=== PATIENT | male | born 1945 | race Caucasian/White ===

== ENCOUNTER 2024-03-08 11:55 | Inpatient (IN) ==
[2024-03-08 12:16] LABS: Basophils # (auto) 0.07 K/uL (0.00-0.20); Basophils % (auto) 0.8 %; Eosinophils # (auto) 0.38 K/uL (0.00-0.50); Eosinophils % (auto) 4.6 %; Hematocrit (blood only) 33.6 % (42.0-52.0); Immature Granulocytes # (auto) 0.07 K/uL (0.01-0.20); Immature Granulocytes % (auto) 0.8 %; Lymphocytes # (auto) 0.97 K/uL (1.20-3.40); Lymphocytes % (auto) 11.7 %; Mean Corpuscular Hemoglobin 27.5 pg (25.0-34.0); Mean Corpuscular Hgb Conc 32.7 g/dL (32.0-36.0); Mean Platelet Volume 11.4 fL (9.4-12.4); Monocytes # (auto) 1.05 K/uL (0.11-0.59); Monocytes % (auto) 12.6 %; Neutrophils # (auto) 5.77 K/uL (1.40-6.50); Neutrophils % (auto) 69.5 %; Platelet Count 233 K/uL (130-400); RDW Standard Deviation 49.1 fL (36.4-46.3); White Blood Count 8.31 K/ul (4.8-10.8)
--- NOTE | 2024-03-08 12:31 | Emergency Department Note ---
Impression & Plan Near syncope, Elevated lactic acid level, Elevated serum creatinine ED Provider Note HISTORY OF PRESENT ILLNESS: Patient is a 79-year-old male presenting after an episode of near syncope. Patient reportedly was eating [place] breakfast with his family when he suddenly felt very lightheaded and very weak like he was going to pass out. Family reports he seemed to start slumping over towards his table and the family said his eyes seemed to roll back into his head. They report that they do not know if he fully passed out but he did seem near unresponsive for about a few seconds. They gave him a drink of orange juice because they thought his blood sugar was low. They state that he came to before the ambulance got there. Patient denies any chest pain or shortness of breath before the episode. He states that he felt very lightheaded and became diaphoretic with the weakness. Patient does report that he has not had a bowel movement in over a week. He states that he is still passing gas but has not had a bowel movement. States that he has been taking MiraLAX with no output from his rectum. Denies any significant abdominal pain. ROS: as above PHYSICAL EXAM: Constitutional: Patient appears in no acute distress. HENT: Head: Normocephalic and atraumatic. Eyes: EOMI, PERRL Mouth/Throat: Mucous membranes moist. Neck: Trachea midline. Neck supple. Cardiovascular: Irregular rhythm. No murmurs, rubs or gallops. Intact distal pulses. Pulmonary/Chest: No respiratory distress. Breath sounds clear and equal bilaterally. No wheezes or rales. Abdominal: Abdomen soft, no tenderness, rebound or guarding. Musculoskeletal: No edema, tenderness or deformity noted. Skin: Warm and dry. No rash, erythema, pallor or cyanosis Psychiatric: Appropriate mood and affect for situation. Neurological: Alert and keenly responsive. CN II-XII grossly intact, moving all extremities equally and fully. MDM: - Vitals signs showed stable. - History obtained via patient. History as above. - Chronic conditions affecting care: HTN; HLD; DM-2 - Differential diagnoses include, but are not limited to: UTI; ACS; electrolyte abnormality; pneumonia; viral syndrome; CVA; intracranial hemorrhage - Order placed for continuous cardiac monitoring. At this time, monitor showed rate of 75 bpm with irregular rhythm, per my interpretation. - External medical records reviewed. - EKG interpreted by myself showed atrial fibrillation. Rate 59 bpm. QT 416. No acute ischemic changes. - Laboratory workup interpreted by myself showed normal WBC; elevated INR (2.6); normal electrolytes; elevated creatinine (Cr 1.72 - unknown baseline); hyperglycemia (glucose 275); elevated lactic acid (2.9); normal procalcitonin; normal troponin; elevated TSH but with normal T4 - CXR negative for pneumonia, per my interpretation - CT head wo contrast negative for acute intracranial pathology - Patient given 1 L normal saline in the ER. Repeat lactic acid was noted to be 5.7. However, this does not fit with the patient's clinical picture and I have requested that lab repeat lactic acid which was 3.1. Patient has no reproducible abdominal pain and no complaints on examination. - Given a second 1L NS. - Empirically ordered IV rocephin given elevated lactate. However, patient has had no infectious symptoms such as fever, nausea or vomiting. - Patient has no reproducible abdominal pain on examination and no complaints of abdominal pain. However, he has not had a bowel movement in over a week, so CT imaging was obtained. - CT abdomen/pelvis wo contrast noting bilateral perinephric stranding which could potentially be chronic pyelonephritis. Noted to have mild dilatation of the bilateral extrarenal pelvises and proximal ureters but without stones noted. - Unclear etiology for patient's elevated lactic acid in the emergency department. Will admit for further evaluation. - Discussion was had with case checker about patient's case and need for admission - Hospitalist consulted for admission - [facility] ASSESSMENT AND PLAN: Diagnosis: near syncope; elevated lactic acid; elevated creatinine Plan: admit Past Med/Surg History Problem List (Updated 03/08/24 @ 15:46 by Sima Kenny MD) Elevated serum creatinine (Acute) Elevated lactic acid level (Acute) Near syncope (Acute) Social History Smoking Status: Never smoker Feels Safe at Home: Yes Allergies Allergies Allergy/AdvReac Type Severity Reaction Status Date / Time No Known Allergies Allergy Unverified 03/08/24 16:00 Home Meds Home Medications Medication Instructions Recorded Confirmed carbidopa 25 mg-levodopa 100 mg 2 tab PO TID 03/08/24 03/08/24 tablet carvedilol 25 mg tablet 25 mg PO BID 03/08/24 03/08/24 gabapentin 300 mg capsule 300 mg PO HS 03/08/24 03/08/24 insulin glargine U-300 conc 300 50 unit subcut DAILY 03/08/24 03/08/24 unit/mL (1.5 mL) subcutaneous pen ([employer] SoloStar U-300 Insulin) megestrol 20 mg tablet 20 mg PO BID 03/08/24 03/08/24 pantoprazole 40 mg tablet,delayed 40 mg PO DAILYBB 03/08/24 03/08/24 release rosuvastatin 20 mg tablet 20 mg PO DAILY 03/08/24 03/08/24 warfarin 5 mg tablet 5 mg PO DIRECTED 03/08/24 03/08/24 Results & Data (ED) Vital Signs Vital Signs - 24 hr 03/08/24 11:59 03/08/24 11:59 03/08/24 12:06 Temperature 36.7 C Temperature Source Oral Pulse Rate 58 L Pulse Rate [Right Brachial] 58 L Pulse Rhythm Regular Pulse Rhythm [Right Brachial] Regular Pulse Strength Normal Pulse Strength [Right Brachial] Normal Respiratory Rate 18 18 Respiratory Effort / Characteristics Non-Labored Non-Labored Respiratory Depth Normal Normal Respiratory Pattern Regular Regular Blood Pressure 135/81 Blood Pressure [Right Arm] 135/81 Blood Pressure Mean 99 Blood Pressure Mean [Right Arm] 99 Blood Pressure Position Lying Blood Pressure Position [Right Arm] Lying Pulse Oximetry 98 98 98 Oxygen Delivery Method Room Air Room Air Room Air Sepsis Recent Fever Within 48 Hours No Sepsis New/Unexplained Change in Mental Status N/A Sepsis Action Taken by Nursing No Action Required 03/08/24 12:30 03/08/24 14:00 Temperature Temperature Source Pulse Rate 75 Pulse Rate [Right Brachial] 72 Pulse Rhythm Pulse Rhythm [Right Brachial] Regular Pulse Strength Pulse Strength [Right Brachial] Normal Respiratory Rate 20 Respiratory Effort / Characteristics Non-Labored Respiratory Depth Normal Respiratory Pattern Regular Blood Pressure Blood Pressure [Right Arm] 135/79 Blood Pressure Mean Blood Pressure Mean [Right Arm] 97 Blood Pressure Position Blood Pressure Position [Right Arm] Lying Pulse Oximetry 98 Oxygen Delivery Method Room Air Sepsis Recent Fever Within 48 Hours Sepsis New/Unexplained Change in Mental Status Sepsis Action Taken by Nursing Laboratory Data 03/08/24 12:04 03/08/24 12:04 Lab Results 03/08/24 03/08/24 03/08/24 Range/Units 12:02 12:04 14:05 WBC 8.31 (4.8-10.8) K/ul RBC 4.00 L (4.70-6.10) M/uL Hgb 11.0 L (14.0-18.0) g/dl Hct 33.6 L (42.0-52.0) % MCV 84.0 (80.0-100.0) fL MCH 27.5 (25.0-34.0) pg MCHC 32.7 (32.0-36.0) g/dL RDW Std Deviation 49.1 H (36.4-46.3) fL RDW Coeff of Abdi 16.0 H (11.5-14.5) % Plt Count 233 (130-400) K/uL MPV 11.4 (9.4-12.4) fL Immature Gran % (Auto) 0.8 % Neut % (Auto) 69.5 % Lymph % (Auto) 11.7 % [place] % (Auto) 12.6 % Eos % (Auto) 4.6 % Baso % (Auto) 0.8 % Neut # (Auto) 5.77 (1.40-6.50) K/uL Lymph # (Auto) 0.97 L (1.20-3.40) K/uL [place] # (Auto) 1.05 H (0.11-0.59) K/uL Eos # (Auto) 0.38 (0.00-0.50) K/uL Baso # (Auto) 0.07 (0.00-0.20) K/uL Immature Gran # (Auto) 0.07 (0.01-0.20) K/uL PT 25.5 H (9.0-12.0) Seconds INR 2.6 H (0.9-1.1) Sodium 137 (136-145) mmol/L Potassium 4.5 (3.5-5.1) mmol/L Chloride 104 (98-107) mmol/L Carbon Dioxide 24 (21-32) mmol/L Anion Gap 9 (3-11) BUN 43 H (6-23) mg/dl Creatinine 1.72 H (0.6-1.4) mg/dl Est Cr Clr Drug Dosing 43.2 ml/min eGFR 39.94 BUN/Creatinine Ratio 25.0 H (10-20) Glucose 275 H (70-99(Fasting)) mg/dl POC Glucose 269 H (70-99) mg/dl Lactate 2.9 H* (0.4-2.0) mmol/L Calcium 9.0 (8.6-10.3) mg/dl Magnesium 2.4 (1.7-2.4) mg/dl Total Bilirubin 0.6 (0.2-1.0) mg/dl AST 13 (13-39) U/L ALT < 3 L (7-52) U/L Alkaline Phosphatase 70 (34-104) U/L Lactate Dehydrogenase (86-244) U/L Troponin I High Sens 12.9 (0-20) pg/ml Total Protein 6.8 (6.0-8.3) gm/dl Albumin 3.9 (3.4-5.0) gm/dl Globulin 2.9 (2.5-4.0) gm/dl Albumin/Globulin Ratio 1.3 (0.9-2) Procalcitonin 0.02 (0-0.5) ng/ml TSH 6.100 H (0.300-4.500) uIu/ml Free T4 1.07 (0.61-1.60) ng/dl Urine Color Yellow Urine Appearance Clear (Clear) Urine pH 5.5 (4.5-7.5) Ur Specific [place] 1.010 (1.000-1.030) Urine Protein Negative (Negative) Urine Glucose (UA) 2+ H (Negative) Urine Ketones Negative (Negative) Urine Blood Negative (Negative) Urine Nitrite Negative (Negative) Urine Bilirubin Negative (Negative) Urine Urobilinogen Negative (Negative) Ur Leukocyte Esterase Negative (Negative) Adenovirus (PCR) Not Detected (NotDetected) B. pertussis DNA (PCR) Not Detected (NotDetected) B.parapertussis DNA PCR Not Detected (NotDetected) C. pneumoniae DNA (PCR) Not Detected (NotDetected) Coronavirus OC43 (PCR) Not Detected (NotDetected) Coronavirus HKU1 (PCR) Not Detected (NotDetected) Coronavirus 229E (PCR) Not Detected (NotDetected) SARS-CoV-2 (PCR) Not Detected (NotDetected) Coronavirus NL63 (PCR) Not Detected (NotDetected) Human Metapneumovir PCR Not Detected (NotDetected) Influenza Type A (PCR) Not Detected (NotDetected) Influenza Type B (PCR) Not Detected (NotDetected) M. pneumoniae (PCR) Not Detected (NotDetected) Parainfluenza 1 (PCR) Not Detected (NotDetected) Parainfluenza 2 (PCR) Not Detected (NotDetected) Parainfluenza 3 (PCR) Not Detected (NotDetected) Parainfluenza 4 (PCR) Not Detected (NotDetected) RSV (PCR) Not Detected (NotDetected) Entero/Rhino (PCR) Not Detected (NotDetected) 03/08/24 03/08/24 03/08/24 Range/Units 14:28 14:30 15:07 WBC (4.8-10.8) K/ul RBC (4.70-6.10) M/uL Hgb (14.0-18.0) g/dl Hct (42.0-52.0) % MCV (80.0-100.0) fL MCH (25.0-34.0) pg MCHC (32.0-36.0) g/dL RDW Std Deviation (36.4-46.3) fL RDW Coeff of Abdi (11.5-14.5) % Plt Count (130-400) K/uL MPV (9.4-12.4) fL Immature Gran % (Auto) % Neut % (Auto) % Lymph % (Auto) % [place] % (Auto) % Eos % (Auto) % Baso % (Auto) % Neut # (Auto) (1.40-6.50) K/uL Lymph # (Auto) (1.20-3.40) K/uL [place] # (Auto) (0.11-0.59) K/uL Eos # (Auto) (0.00-0.50) K/uL Baso # (Auto) (0.00-0.20) K/uL Immature Gran # (Auto) (0.01-0.20) K/uL PT (9.0-12.0) Seconds INR (0.9-1.1) Sodium (136-145) mmol/L Potassium (3.5-5.1) mmol/L Chloride (98-107) mmol/L Carbon Dioxide (21-32) mmol/L Anion Gap (3-11) BUN (6-23) mg/dl Creatinine (0.6-1.4) mg/dl Est Cr Clr Drug Dosing ml/min eGFR BUN/Creatinine Ratio (10-20) Glucose (70-99(Fasting)) mg/dl POC Glucose (70-99) mg/dl Lactate 5.7 H* 3.1 H* (0.4-2.0) mmol/L Calcium (8.6-10.3) mg/dl Magnesium (1.7-2.4) mg/dl Total Bilirubin (0.2-1.0) mg/dl AST (13-39) U/L ALT (7-52) U/L Alkaline Phosphatase (34-104) U/L Lactate Dehydrogenase 262 H (86-244) U/L Troponin I High Sens (0-20) pg/ml Total Protein (6.0-8.3) gm/dl Albumin (3.4-5.0) gm/dl Globulin (2.5-4.0) gm/dl Albumin/Globulin Ratio (0.9-2) Procalcitonin (0-0.5) ng/ml TSH (0.300-4.500) uIu/ml Free T4 (0.61-1.60) ng/dl Urine Color Urine Appearance (Clear) Urine pH (4.5-7.5) Ur Specific [place] (1.000-1.030) Urine Protein (Negative) Urine Glucose (UA) (Negative) Urine Ketones (Negative) Urine Blood (Negative) Urine Nitrite (Negative) Urine Bilirubin (Negative) Urine Urobilinogen (Negative) Ur Leukocyte Esterase (Negative) Adenovirus (PCR) (NotDetected) B. pertussis DNA (PCR) (NotDetected) B.parapertussis DNA PCR (NotDetected) C. pneumoniae DNA (PCR) (NotDetected) Coronavirus OC43 (PCR) (NotDetected) Coronavirus HKU1 (PCR) (NotDetected) Coronavirus 229E (PCR) (NotDetected) SARS-CoV-2 (PCR) (NotDetected) Coronavirus NL63 (PCR) (NotDetected) Human Metapneumovir PCR (NotDetected) Influenza Type A (PCR) (NotDetected) Influenza Type B (PCR) (NotDetected) M. pneumoniae (PCR) (NotDetected) Parainfluenza 1 (PCR) (NotDetected) Parainfluenza 2 (PCR) (NotDetected) Parainfluenza 3 (PCR) (NotDetected) Parainfluenza 4 (PCR) (NotDetected) RSV (PCR) (NotDetected) Entero/Rhino (PCR) (NotDetected) Administered Medications Discontinued Medications Sodium Chloride (Nss) 1,000 mls @ 999 mls/hr IV .Q1H1M ONE Stop: 03/08/24 13:40 Last Infusion: 03/08/24 13:47 Dose: Infused Documented By: Admin: 03/08/24 12:46 Dose: 999 mls/hr Documented By: JOHN Sodium Chloride (Nss) 1,000 mls @ 999 mls/hr IV .Q1H1M ONE Stop: 03/08/24 15:48 Last Admin: 03/08/24 14:59 Dose: 999 mls/hr Documented By: JOHN Imaging Data Radiologist's Impression: Chest X-Ray 03/08/24 11:59 EXAM: Radiograph of the Chest 1 View INDICATION: TECHNIQUE: Frontal view of the chest. COMPARISON: No relevant prior studies available. FINDINGS: Lungs and pleural spaces: No consolidation or pulmonary edema. No pleural effusion or pneumothorax. Heart: Large cardiac shadow. Mediastinum: Normal contour. Bones/joints: No fracture, erosion or dislocation. Soft tissues: No abnormality noted. No radiopaque foreign body noted. Vasculature: There is calcification of the aortic arch. Upper abdomen: No abnormality noted. IMPRESSION: No acute cardiopulmonary disease. ACT 112: Negative or not required by law. Electronically signed by Ama Chou 03-08-2024 13:[address] 03/08/24 13:43 EXAM: CT Head Without Intravenous Contrast INDICATION: Weakness. Hypoglycemia. TECHNIQUE: Axial computed tomography images of the head/brain without intravenous contrast. Sagittal and/or coronal reformats are provided. Sagittal and coronal reformatted images were created and reviewed. This CT exam was performed using one or more of the following dose reduction techniques: automated exposure control, adjustment of the mA and/or kV according to patient size, and/or use of iterative reconstruction technique. COMPARISON: No relevant prior studies available. FINDINGS: Limitations: None. Brain and extra-axial spaces: There is age appropriate cortical atrophy and chronic ischemic periventricular white matter hypodensity. No acute infarct, hemorrhage or mass noted. Bones/joints: No acute changes. Soft tissues: No significant abnormality noted. Vasculature: No acute abnormality noted. Sinuses: No layering fluid in the visualized portions of the paranasal sinuses. Mastoid air cells: No mastoid effusion. Orbits: No significant abnormality noted. IMPRESSION: Cerebral atrophy. No acute changes. ACT 112: Negative or not required by law. Electronically signed by Ama Chou 03-08-2024 2:04 PM Abdomen/Pelvis CT 03/08/24 13:50 EXAM: CT Abdomen and Pelvis Without Intravenous Contrast INDICATION: Weakness. Hypoglycemia. TECHNIQUE: Axial computed tomography images of the abdomen and pelvis without intravenous contrast. Sagittal and coronal reformatted images were created and reviewed. This CT exam was performed using one or more of the following dose reduction techniques: automated exposure control, adjustment of the mA and/or kV according to patient size, and/or use of iterative reconstruction technique. COMPARISON: No relevant prior studies available. FINDINGS: Limitations: None. Lung bases: No abnormality noted. Pleural space: No visualized pleural effusion or pneumothorax. Heart: No abnormality noted. Mediastinum: No abnormality noted. ABDOMEN: Liver: Lack of intravenous contrast limits detection of some masses. No abnormality noted. Gallbladder and bile ducts: No calcified stones or surrounding fluid. Pancreas: No pancreatic mass, calcification, inflammation or ductal dilation noted. Spleen: No significant abnormality noted. Adrenals: No significant abnormality noted. Kidneys and ureters: Bilateral dilated extrarenal pelves with trace hydronephrosis and proximal ureteral dilatation. No ureteral stone. Simple right renal cyst/s. No simple cyst follow-up necessary. Left kidney appears normal. No renal stone, hydronephrosis or perinephric fluid. Punctate calcification right kidney likely renal vascular. No obstructing stone. Stomach and bowel: Moderate amounts of stool throughout the colon with scattered diverticula. No diverticulitis or obstruction. PELVIS: Appendix: No findings to suggest acute appendicitis. Bladder: Mildly distended urinary bladder. Reproductive: No abnormalities noted. ABDOMEN and PELVIS: Intraperitoneal space: No free air. No significant fluid collection. Bones/joints: Degenerative changes in the spine. Intact well-seated posterior L4-L5 fusion hardware. No acute osseous abnormality. Soft tissues: Umbilical hernia containing fat. Vasculature: Diffuse moderate to severe atherosclerosis of the aorta, renal and superior mesenteric arteries. 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 No aneurysm or hemorrhage. Lymph nodes: No pathologically enlarged lymph nodes. IMPRESSION: There is bilateral perinephric stranding which could reflect acute and/or chronic pyelonephritis. There is mild dilatation of the bilateral extrarenal pelves and proximal ureters possibly related to back pressure from distended urinary bladder. No stones. Correlate with urinalysis. ACT 112: Negative or not required by law. Electronically signed by Ama Chou 03-08-2024 2:12 PM Discharge Plan Visit Data Chief Complaint: Illness Stated Complaint: WEAKNESS, ILLNESS ED Provider: Sima Kenny Discharge Problem: Near syncope, Elevated lactic acid level, Elevated serum creatinine Forms Stand Alone Forms: My [facility] Prescriptions Prescriptions: No Action carvedilol 25 mg tablet 25 mg PO BID pantoprazole 40 mg tablet,delayed release (DR/EC) 40 mg PO DAILYBB warfarin 5 mg tablet 5 mg PO DIRECTED Rx Instructions: SPOKE WITH PT HE IS TAKING 5MG ONCE DAILY EVERY DAY. HE GETS LEVELS CHECKED EVERY 10 DAYS. gabapentin 300 mg capsule 300 mg PO HS carbidopa-levodopa 25-100 mg tablet 2 tab PO TID Rx Instructions: TAKE 45 MIN PRIOR TO MEALS megestrol 20 mg tablet 20 mg PO BID rosuvastatin 20 mg tablet 20 mg PO DAILY insulin glargine U-300 conc [[employer] SoloStar U-300 Insulin] 300 unit/mL (1.5 mL) insulin pen 50 unit subcut DAILY Referrals Referrals: PCP,NO [Physician] -
[2024-03-08 12:35] LABS: Anion Gap 9 (3-11); Blood Urea Nitrogen 43 mg/dl (6-23); Carbon Dioxide 24 mmol/L (21-32); Chloride 104 mmol/L (98-107); Creatinine Clr Calc Pharmacy 43.2 ml/min; Glucose 275 mg/dl (70-99(Fasting)); Potassium 4.5 mmol/L (3.5-5.1); Sodium 137 mmol/L (136-145)
[2024-03-08 12:42] LABS: Alanine Aminotransferase < 3 U/L (7-52); Albumin Globulin Ratio 1.3 (0.9-2); Albumin Level 3.9 gm/dl (3.4-5.0); Alkaline Phosphatase 70 U/L (34-104); Aspartate Aminotransferase 13 U/L (13-39); Bilirubin,Total 0.6 mg/dl (0.2-1.0); Globulin 2.9 gm/dl (2.5-4.0); Magnesium 2.4 mg/dl (1.7-2.4); Total Protein 6.8 gm/dl (6.0-8.3); Troponin I High Sensitivity 12.9 pg/ml (0-20)
[2024-03-08] MEDS: SODIUM CHLORIDE 0.9% 1,000 ML IV ONE ×2 (12:46→14:59)
[2024-03-08 12:53] LABS: INR 2.6 (0.9-1.1); Prothrombin Time 25.5 Seconds (9.0-12.0)
--- NOTE | 2024-03-08 13:10 | XRay Report ---
EXAM: Radiograph of the Chest 1 View INDICATION: TECHNIQUE: Frontal view of the chest. COMPARISON: No relevant prior studies available. FINDINGS: Lungs and pleural spaces: No consolidation or pulmonary edema. No pleural effusion or pneumothorax. Heart: Large cardiac shadow. Mediastinum: Normal contour. Bones/joints: No fracture, erosion or dislocation. Soft tissues: No abnormality noted. No radiopaque foreign body noted. Vasculature: There is calcification of the aortic arch. Upper abdomen: No abnormality noted. IMPRESSION: No acute cardiopulmonary disease. ACT 112: Negative or not required by law. Electronically signed by Ama Chou 03-08-2024 13:09 PM
[2024-03-08 13:12] LABS: Adenovirus PCR Not Detected (NotDetected); Bordetella parapertussis PCR Not Detected (NotDetected); Bordetella pertussis PCR Not Detected (NotDetected); Chlamydia pneumoniae PCR Not Detected (NotDetected); Coronavirus 229E PCR Not Detected (NotDetected); Coronavirus CoV-2 (COVID19)PCR Not Detected (NotDetected); Coronavirus HKU1 PCR Not Detected (NotDetected); Coronavirus NL63 PCR Not Detected (NotDetected); Coronavirus OC43PCR Not Detected (NotDetected); Human Metapneumovirus PCR Not Detected (NotDetected); Influenza A PCR Not Detected (NotDetected); Influenza B PCR Not Detected (NotDetected); Mycoplasma pneumoniae PCR Not Detected (NotDetected); Parainfluenza Virus 1 PCR Not Detected (NotDetected); Parainfluenza Virus 2 PCR Not Detected (NotDetected); Parainfluenza Virus 3 PCR Not Detected (NotDetected); Parainfluenza Virus 4 PCR Not Detected (NotDetected); Respiratory Syncytial VirusPCR Not Detected (NotDetected); Rhinovirus/Enterovirus PCR Not Detected (NotDetected)
[2024-03-08 13:27] LABS: T4 Free Thyroxine 1.07 ng/dl (0.61-1.60)
--- NOTE | 2024-03-08 14:04 | CT Scan Report ---
EXAM: CT Head Without Intravenous Contrast INDICATION: Weakness. Hypoglycemia. TECHNIQUE: Axial computed tomography images of the head/brain without intravenous contrast. Sagittal and/or coronal reformats are provided. Sagittal and coronal reformatted images were created and reviewed. This CT exam was performed using one or more of the following dose reduction techniques: automated exposure control, adjustment of the mA and/or kV according to patient size, and/or use of iterative reconstruction technique. COMPARISON: No relevant prior studies available. FINDINGS: Limitations: None. Brain and extra-axial spaces: There is age appropriate cortical atrophy and chronic ischemic periventricular white matter hypodensity. No acute infarct, hemorrhage or mass noted. Bones/joints: No acute changes. Soft tissues: No significant abnormality noted. Vasculature: No acute abnormality noted. Sinuses: No layering fluid in the visualized portions of the paranasal sinuses. Mastoid air cells: No mastoid effusion. Orbits: No significant abnormality noted. IMPRESSION: Cerebral atrophy. No acute changes. ACT 112: Negative or not required by law. Electronically signed by Ama Chou 03-08-2024 2:04 PM
--- NOTE | 2024-03-08 14:12 | CT Scan Report ---
EXAM: CT Abdomen and Pelvis Without Intravenous Contrast INDICATION: Weakness. Hypoglycemia. TECHNIQUE: Axial computed tomography images of the abdomen and pelvis without intravenous contrast. Sagittal and coronal reformatted images were created and reviewed. This CT exam was performed using one or more of the following dose reduction techniques: automated exposure control, adjustment of the mA and/or kV according to patient size, and/or use of iterative reconstruction technique. COMPARISON: No relevant prior studies available. FINDINGS: Limitations: None. Lung bases: No abnormality noted. Pleural space: No visualized pleural effusion or pneumothorax. Heart: No abnormality noted. Mediastinum: No abnormality noted. ABDOMEN: Liver: Lack of intravenous contrast limits detection of some masses. No abnormality noted. Gallbladder and bile ducts: No calcified stones or surrounding fluid. Pancreas: No pancreatic mass, calcification, inflammation or ductal dilation noted. Spleen: No significant abnormality noted. Adrenals: No significant abnormality noted. Kidneys and ureters: Bilateral dilated extrarenal pelves with trace hydronephrosis and proximal ureteral dilatation. No ureteral stone. Simple right renal cyst/s. No simple cyst follow-up necessary. Left kidney appears normal. No renal stone, hydronephrosis or perinephric fluid. Punctate calcification right kidney likely renal vascular. No obstructing stone. Stomach and bowel: Moderate amounts of stool throughout the colon with scattered diverticula. No diverticulitis or obstruction. PELVIS: Appendix: No findings to suggest acute appendicitis. Bladder: Mildly distended urinary bladder. Reproductive: No abnormalities noted. ABDOMEN and PELVIS: Intraperitoneal space: No free air. No significant fluid collection. Bones/joints: Degenerative changes in the spine. Intact well-seated posterior L4-L5 fusion hardware. No acute osseous abnormality. Soft tissues: Umbilical hernia containing fat. Vasculature: Diffuse moderate to severe atherosclerosis of the aorta, renal and superior mesenteric arteries. 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 No aneurysm or hemorrhage. Lymph nodes: No pathologically enlarged lymph nodes. IMPRESSION: There is bilateral perinephric stranding which could reflect acute and/or chronic pyelonephritis. There is mild dilatation of the bilateral extrarenal pelves and proximal ureters possibly related to back pressure from distended urinary bladder. No stones. Correlate with urinalysis. ACT 112: Negative or not required by law. Electronically signed by Ama Chou 03-08-2024 2:12 PM
[2024-03-08 14:50] LABS: Appearance Urine Clear (Clear); Bilirubin Urine Negative (Negative); Blood Urine Negative (Negative); Color Urine Yellow; Glucose Urine UA 2+ (Negative); Ketones Urine Negative (Negative); Leukocyte Esterase Urine Negative (Negative); Nitrite Urine Negative (Negative); Protein Urine Negative (Negative); Urobilinogen Urine Negative (Negative); pH Urine 5.5 (4.5-7.5)
[2024-03-08] MEDS: cefTRIAXone SODIUM 2,000 MG/50 ML BAG IV STA (16:10)
--- NOTE | 2024-03-08 16:45 | Emergency Department Note ---
ED Visit Note I was asked to evaluate the patient by nursing. The patient is a 79-year-old male. He came to emergency department by ambulance. He came to the emergency department accompanied with his son. His son describes the episode that occurred. It sounds though it was more consistent with a syncopal episode. At this time the patient has no abdominal pain. He denies having any chest pain. He denies having any difficulty breathing. The patient was not tachycardic or significantly hypoxic. I did review the patient's laboratory and radiographic s tudies with him and his son. The patient does appear to have stranding as well as some ureteral dilation in his CT abdomen pelvis. Urine was not consistent with an infection but he was treated with antibiotics given the findings on CT. The patient did ask about the possibility of being transferred to a different facility closer to home. I discussed that with the patient and I offered to do that but at this time the patient has agreed to stay in the hospital here. I discussed the patient's condition with the [facility] hospitalist, Dr. Yao. He is aware of the patient's concerns. At this time the patient is agreed to stay at our facility for further management. .
[2024-03-08] MEDS ORDERED: GLUCAGON FOR INJ 1 MG VIAL SQ PRN (18:34)
[2024-03-08] MEDS ORDERED: DEXTROSE 50% 50 ML SYRINGE IV PRN (18:34)
[2024-03-08] MEDS ORDERED: GLUCOSE 40% GEL 15 GM TUBE PO PRN (18:34)
[2024-03-08] MEDS ORDERED: PHARMACY GLYCEMIC MGMT CONSULT PRN (18:34)
[2024-03-08] MEDS ORDERED: CARBOHYDRATES FOR HYPOGLYCEMIA PO PRN (18:34)
[2024-03-08] MEDS ORDERED: GLUCOSE 10 TAB/TUBE PO PRN (18:34)
--- NOTE | 2024-03-08 18:52 | History & Physical Report ---
Date of Service March 08, 2024 Assessment & Plan (1) Near syncope: (2) Elevated lactic acid level: (3) Pyelonephritis: Plan: 79-year-old male with atrial fibrillation on Coumadin, diabetes type 2 with neuropathy, Parkinson's disease, and other problems noted below presenting with near syncopal episode this morning. Near syncope in the setting of possible: Sepsis with elevated lactic acid Acute versus chronic pyelonephritis Reports chills for the past 1 to 2 days but denies problems with urination, flank or back pain Urine culture, blood culture: Pending IV cefepime 2 g every 12 in light of acute kidney injury Repeat lactic acid at 6 PM Possible hypoglycemia episode? Patient's symptoms seems to improve after being given orange juice and a spoon of sugar Patient currently hyperglycemic Check A1c in the morning Pharmacy glycemic management Rule out orthostatic hypotension Check orthostatic vital signs Rule out arrhythmia, history of A-fib Monitor telemetry noted Echocardiogram ordered Continue usual carvedilol and Coumadin INR daily Component of dehydration Acute kidney injury Patient's creatinine elevated 1.7 Give gentle IV NSS Constipation MiraLAX daily Other chronic medical problems: Parkinson's disease-continue carbidopa levodopa History of prostate cancer, status post radiation Abdominal hernia Abdominal aortic aneurysm Back surgery 2019 DVT prophylaxis Already on Coumadin CODE STATUS Full code as per patient Disposition Lives at home in [place], [place] area Currently visiting son History of Present Illness Primary Care Provider: VIDYA MAHMOOD 79-year-old male with atrial fibrillation on Coumadin, diabetes type 2 with neuropathy, Parkinson's disease, and other problems noted below presenting with near syncopal episode this morning. Patient is a resident of [place], [place] and is currently in town visiting his son and family for [place]. He has been doing well until this morning. Patient checked his blood sugar before breakfast and it was 194, so he proceeded to administer his usual insulin Toujeo 50 units. 30 minutes later while having breakfast, patient's family noted that the patient was becoming weak, slumping forward, with his eyes almost closing and diaphoretic. Patient's family tried to wake up the patient, gave him some orange juice and a spoon of sugar. Patient then became more responsive and talking more. He denies having any palpitations, chest pain, shortness of breath or dizziness. When the EMS arrived, the patient's blood glucose was noted to be 304. At the ER, patient received with essentially normal vital signs. Lactic acid was elevated at 2.9, and 5.7 upon recheck. He was given 2 L of normal saline. CT abdomen pelvis showing possible acute versus chronic pyelonephritis. Patient was started with IV ceftriaxone. On exam, patient seen resting in bed, comfortable, awake and alert oriented x 3, conversant, answering all questions appropriately. He said he feels better since admission, denies active headache, dizziness, chest pain, shortness of breath, abdominal pain, problems with urination. Patient's son at the bedside also supplying further information. He states that his father has been staying in front of the fireplace for the past 2 days. Also constipated x 1 week but had 2 bowel movements at the ER. Allergies Allergy/AdvReac Type Severity Reaction Status Date / Time No Known Allergies Allergy Unverified 03/08/24 16:00 Home Medications Medication Instructions Recorded Confirmed Type carbidopa 25 mg-levodopa 100 mg 2 tab PO TID 03/08/24 03/08/24 History tablet carvedilol 25 mg tablet 25 mg PO BID 03/08/24 03/08/24 History gabapentin 300 mg capsule 300 mg PO HS 03/08/24 03/08/24 History insulin glargine U-300 conc 300 50 unit subcut DAILY 03/08/24 03/08/24 History unit/mL (1.5 mL) subcutaneous pen (Toujeo SoloStar U-300 Insulin) megestrol 20 mg tablet 20 mg PO BID 03/08/24 03/08/24 History pantoprazole 40 mg tablet,delayed 40 mg PO DAILYBB 03/08/24 03/08/24 History release rosuvastatin 20 mg tablet 20 mg PO DAILY 03/08/24 03/08/24 History warfarin 5 mg tablet 5 mg PO DIRECTED 03/08/24 03/08/24 History Past Med/Surg History Problem List (Updated 03/08/24 @ 18:50 by Moustapha Yao MD) Pyelonephritis Elevated serum creatinine (Acute) Elevated lactic acid level (Acute) Near syncope (Acute) Social History Smoking Status: Never smoker Feels Safe at Home: Yes Review of Systems Review of Systems: all noted and negative except for above Physical Exam Physical Exam: General- oriented x 3, not in distress, speaks in sentences with no effort or accessory muscle use Head- atraumatic Eyes- PERRL, EOMI, anicteric ENT- oropharynx clear Neck- supple, no JVD, no adenopathy, no thyromegaly; carotids +2/2, no bruits appreciated Lungs- clear to auscultation bilaterally, no rales/wheezes Heart- normal rate, Irregularly irregular rhythm; no murmur, no gallop, no rub appreciated Abdomen- normal bowel sounds, nondistended, soft, nontender, no masses or hepatosplenomegaly Extremities- no pretibial edema, no calf tenderness; peripheral pulses intact Neuro- alert, oriented x 3; CN 2-12 grossly intact; motor 5/5 bilatera lly;sensation 100% on all extremities; no other gross focal neurologic deficits Skin- warm & dry Results & Data Results & Data Vital Signs (Past 12 Hours) Vital Signs Temp Pulse Pulse Resp BP BP Pulse Ox 03/08/24 16:00 77 24 156/80 H 96 03/08/24 14:00 72 20 135/79 98 03/08/24 12:30 75 03/08/24 12:06 98 03/08/24 11:59 58 L 18 135/81 98 03/08/24 11:59 36.7 C 58 L 18 135/81 98 O2 Del Method 03/08/24 16:00 Room Air 03/08/24 14:00 Room Air 03/08/24 12:30 03/08/24 12:06 Room Air 03/08/24 11:59 Room Air 03/08/24 11:59 Room Air all noted and reviewed including below Code Status & VTE Plan VTE Prophylaxis Plan VTE Prophylaxis will be ordered: Yes
[2024-03-08] MEDS: SODIUM CHLORIDE 0.9% 1,000 ML IV SCH (19:18)
[2024-03-08] MEDS: CEFEPIME 2000MG 2,000 MG/20 ML SYR IV SCH (20:49)
[2024-03-08] MEDS: INSULIN ASPART PER UNIT CHARGE SC SCH (20:49)
[2024-03-09] MEDS: INSULIN ASPART PER UNIT CHARGE SC SCH (02:41)
--- NOTE | 2024-03-09 03:56 | Ultrasound Report ---
EXAM: US carotid doppler BI CLINICAL HISTORY: Near syncope. TECHNIQUE: An ultrasound examination of the carotid arteries was performed in real-time and duplex. One or more of the following were performed- spectral analysis, resistive index, waveform analysis, and pulsed Doppler. COMPARISON: None. FINDINGS: Doppler Profile: Vessel Right (PSV/EDV cm/sec) Left (PSV/EDV cm/sec) Common Carotid Artery proximal mid distal 83 76 75 96 97 114 Bulb 81 113 Internal Carotid Artery (ICA) - Proximal mid distal 158 67 74 111 120 106 External Carotid Artery (ECA) 109 196 Vertebral Artery (VA) 70 55 Right ICA/CCA Ratio 1.9 Left ICA/CCA Ratio 1.1 There are multiple atherosclerotic calcified changes of both CCA, and both carotid bulbs, causing a mild degree of stenosis at left ICA and mild to moderate stenosis at right ICA. Both ICA/CCA ratios remain within normal limits (less than 2.0). Vertebral Arteries: Normal flow was noted in the vertebral arteries bilaterally. No evidence of vertebral artery stenosis or subclavian steal phenomenon. No evidence of dissection, aneurysm, or significant intimal thickening. IMPRESSION: There are multiple atherosclerotic calcified changes of both CCA, and both carotid bulbs, causing a mild degree of stenosis at left ICA and mild to moderate stenosis at proximal right ICA. NASCET Criteria for carotid stenosis: Degree of Stenosis Measurement Criteria (Angiography) Peak Systolic Velocity (PSV) End Diastolic Velocity (EDV) PSV Ratio ICA/CCA Clinical Indications for Surgery Normal No narrowing 125 cm/s 40 cm/s 2.0 Not indicated for surgery Mild Stenosis 50% narrowing of the carotid artery 125 cm/s 40 cm/s 2.0 Generally, not indicated for surgery Moderate Stenosis 50% to 69% narrowing of the carotid artery 125 - 230 cm/s 40 - 100 cm/s 2.0 - 4.0 May be considered for surgery based on individual factors Severe Stenosis 70% to 99% narrowing of the carotid artery 230 cm/s 100 cm/s 4.0 Recommended for surgery in symptomatic patients Total Occlusion 100% blockage of the carotid artery No flow detected No flow detected Not applicable Surgery is not typically performed due to complete blockage Electronically signed by Tawny Cantu 03-09-2024 03:55 AM
[2024-03-09] MEDS: LANTUS PER UNIT CHARGE SC SCH (08:17)
[2024-03-09] MEDS: POLYETHYLENE (MIRALAX) 17 GM PACK PO SCH (08:18)
[2024-03-09 08:27] LABS: Basophils # (auto) 0.06 K/uL (0.00-0.20); Basophils % (auto) 0.8 %; Eosinophils # (auto) 0.28 K/uL (0.00-0.50); Eosinophils % (auto) 3.7 %; Hematocrit (blood only) 31.8 % (42.0-52.0); Hemoglobin 10.5 g/dl (14.0-18.0); Immature Granulocytes # (auto) 0.03 K/uL (0.01-0.20); Immature Granulocytes % (auto) 0.4 %; Lymphocytes # (auto) 0.83 K/uL (1.20-3.40); Lymphocytes % (auto) 11.1 %; Mean Corpuscular Hemoglobin 27.5 pg (25.0-34.0); Mean Corpuscular Volume 83.2 fL (80.0-100.0); Mean Platelet Volume 10.9 fL (9.4-12.4); Monocytes # (auto) 0.99 K/uL (0.11-0.59); Monocytes % (auto) 13.2 %; Neutrophils # (auto) 5.31 K/uL (1.40-6.50); Neutrophils % (auto) 70.8 %; Platelet Count 226 K/uL (130-400); RDW Coefficient of Variation 16.3 % (11.5-14.5); RDW Standard Deviation 49.4 fL (36.4-46.3); Red Blood Count 3.82 M/uL (4.70-6.10)
[2024-03-09 08:42] LABS: Estimated Average Glucose 272 mg/dl; Hemoglobin A1C 11.1 % (4.5-5.6)
[2024-03-09 08:43] LABS: BUN Creatinine Ratio 23.4 (10-20); Creatinine Clr Calc Pharmacy 57.2 ml/min; Potassium 4.2 mmol/L (3.5-5.1)
[2024-03-09 08:54] LABS: INR 2.4 (0.9-1.1); Prothrombin Time 24.3 Seconds (9.0-12.0)
--- NOTE | 2024-03-09 09:02 | Pharmacy Report ---
Pharmacy Glycemic Short Note 2 - Date of Service March 09, 2024 - Glycemic Short BSG Results (Last 24 hours): 03/08/24 03/08/24 03/08/24 12:02 12:04 19:36 Glucose 275 H POC Glucose 269 H 245 H 03/09/24 03/09/24 03/09/24 01:59 07:05 08:08 Glucose 122 H POC Glucose 219 H 93 OUTPATIENT ANTIDIABETIC REGIMEN: * Toujeo 50 units SQ once daily Qam ASSESSMENT: * 79 year old with type 2 diabetes, admitted s/p syncopal episode. Presenting with chills over last 1-2 days. Concerns for potential hypoglycemia episode prior to admission as symptoms improved after given orange juice/sugar. Per notes, BSG was 194 mg/dL yesterday AM, patient took usual basal dose but then became very weak, diaphoretic. Blood sugars were in 300s once EMS arrived and were in 200s yesterday during hospitalization. * Fasting BSG 93 mg/dL - patient only on basal insulin outpatient, insulin accounting for prandial needs as well therefore will decrease total insulin by 50% and target 50% basal/50% novolog for hospitalization. PLAN FOR INPATIENT GLYCEMIC CONTROL: * Hold outpatient oral diabetes medications * Basal insulin * Lantus 25 units daily * Bolus insulin * NovoLog per scale ACHS or Q6hrs while NPO * Goal Range: Low 140 mg/dL - High 180 mg/dL * Correction Factor: 30 mg/dL/unit * Nutritional / Prandial insulin per carb ratio of 1 unit per 7 grams CHO consumed
[2024-03-09 10:47] VITALS: BP 153/73; PULSE 82; RESP 18; TEMP 98.2; O2SAT 97
--- NOTE | 2024-03-09 11:05 | Electrocardiogram Report ---
Test Reason : Blood Pressure : */* mmHG Vent. Rate : 59 BPM Atrial Rate : * BPM P-R Int : * ms QRS Dur : 94 ms QT Int : 416 ms P-R-T Axes : * 46 25 degrees QTcB Int : 411 ms Atrial fibrillation Abnormal ECG No previous ECGs available Confirmed by Mario Mccall ([id number]) on 03/09/2024 11:04:44 AM Referred By: REFERRED SELF Confirmed By: Mario Mccall
--- NOTE | 2024-03-09 13:46 | Hospitalist Progress Note ---
Date of Service March 09, 2024 Assessment & Plan (1) Near syncope: (2) Elevated lactic acid level: (3) Pyelonephritis: Plan: 79-year-old male with atrial fibrillation on Coumadin, diabetes type 2 with neuropathy, Parkinson's disease, and other problems noted below presenting with near syncopal episode this morning. Near syncope in the setting of possible: Sepsis with elevated lactic acid- sepsis ruled out Acute versus chronic pyelonephritis Reports chills for the past 1 to 2 days but denies problems with urination, flank or back pain CT of the abdomen pelvis is suggestive of possible chronic pyelonephritis UA has been completely normal and the patient remains free from any symptoms and there is no other signs of infection Started with intravenous cefepime which will be discontinued Possible hypoglycemia episode? Patient's symptoms seems to improve after being given orange juice and a spoon of sugar Patient currently hyperglycemic Check A1c - very high at 11.1 Pharmacy glycemic management Rule out orthostatic hypotension Check orthostatic vital signs No orthostasis noted Rule out arrhythmia, history of A-fib Monitor telemetry noted Echocardiogram ordered Continue usual carvedilol and Coumadin INR daily - INR remains therapeutic and no arrhythmias and monitor Component of dehydration Acute kidney injury Patient's creatinine elevated 1.7 Give gentle IV NSS Constipation MiraLAX daily Other chronic medical problems: Parkinson's disease-continue carbidopa levodopa History of prostate cancer, status post radiation Abdominal hernia Abdominal aortic aneurysm Back surgery 2019 DVT prophylaxis Already on Coumadin CODE STATUS Full code as per patient Disposition Lives at home in [place], [place] area Currently visiting son Discussed with the son and other family members and he will be discharged home this afternoon Admission and Anticipated Discharge Date Admission Date: March 08, 2024 Subjective 03/09/2024 The patient was seen and examined in telemetry unit He was admitted with syncopal likely secondary to vasovagal event with history of Parkinson disease and atrial fibrillation Denies any more symptoms since admission Does not have any other significant symptoms and has been ambulating in the room without any difficulties Review of Systems Review of Systems: All systems reviewed and are unremarkable except as noted below Physical Exam Physical Exam: Lying in bed without any acute distress Constitutional: well developed, well nourished and + obese; not ill appearing Eyes: PERRL, conjunctivae normal, anicteric sclerae ENMT: external ear and nose normal, oropharynx normal Neck: trachea midline, no thyromegaly Respiratory: no respiratory distress Auscultation: lungs clear to auscultation bilaterally Cardiovascular: Rate/Rhythm: regular rate and regular rhythm; not tachycardic Heart Sounds: normal S1 and normal S2; no murmur Extremities: no edema Gastrointestinal (Abdomen): Inspection/Auscultation: normal bowel sounds; abdomen not distended Percussion/Palpation: abdomen soft; abdomen nontender Musculoskeletal: no cyanosis or clubbing, extremities motor strength 5/5 Neurologic: normal touch/pain/proprioception and moves all extremities; no focal motor deficits Psychiatric: A+Ox3, euthymic affect Lymphatic: no cervical or axillary lymphadenopathy Results & Data Results & Data Vital Signs (Past 12 Hours) Vital Signs Temp Pulse Pulse Resp BP Pulse Ox O2 Del Method 03/09/24 10:45 36.8 C 82 18 153/73 H 97 Room Air 03/09/24 10:20 76 03/09/24 07:51 37.3 C 87 17 174/71 H 99 Room Air 03/09/24 03:24 36.5 C 84 18 170/77 H 99 Room Air Laboratory Results Short CBC 03/09/24 Range/Units 08:08 WBC 7.50 (4.8-10.8) K/ul Hgb 10.5 L (14.0-18.0) g/dl Hct 31.8 L (42.0-52.0) % Plt Count 226 (130-400) K/uL BMP 03/09/24 08:08 Sodium 143 Potassium 4.2 Chloride 111 H Carbon Dioxide 27 BUN 30 H Creatinine 1.28 D Glucose 122 H Calcium 9.0 Urine 03/08/24 Range/Units 14:05 Urine Color Yellow Urine Appearance Clear (Clear) Urine pH 5.5 (4.5-7.5) Ur Specific [place] 1.010 (1.000-1.030) Urine Protein Negative (Negative) Urine Glucose (UA) 2+ H (Negative) Medications Administered Current Inpatient Medications Dextrose (Dextrose 50% 50 Ml Syringe) 25 - 50 ml IV UD PRN; Protocol PRN Reason: Hypoglycemia Protocol Stop: 04/07/24 18:33 Glucagon (Glucagon For Inj 1 Mg Vial) 1 mg SQ UD PRN; Protocol PRN Reason: Hypoglycemia Protocol Stop: 04/07/24 18:33 Glucose (Glucose 40% Gel 15 Gm Tube) 15 - 30 gm PO UD PRN; Protocol PRN Reason: Hypoglycemia Protocol Stop: 04/07/24 18:33 Glucose (Glucose 10 Tab/Tube) 4 - 8 tab PO UD PRN; Protocol PRN Reason: Hypoglycemia Protocol Stop: 04/07/24 18:33 Cefepime HCl (Maxipime 2000mg) 2,000 mg in 20 mls @ 5 mls/min IV Q12H LAUREN; Protocol Stop: 03/15/24 21:59 Last Admin: 03/09/24 10:49 Dose: 5 mls/min Sodium Chloride (Nss) 1,000 mls @ 60 mls/hr IV .[id number] [facility] Stop: 03/09/24 18:33 Last Admin: 03/09/24 10:50 Dose: 60 mls/hr Insulin Aspart (Insulin Aspart Per Unit Charge) 0 units SC ACHS [facility] Stop: 04/07/24 20:59 Last Admin: 03/09/24 12:13 Dose: 6 units Insulin Glargine (Lantus Per Unit Charge) 25 units SC DAILY [facility] Stop: 04/08/24 08:59 Last Admin: 03/09/24 08:17 Dose: 25 units Miscellaneous (Carbohydrates For Hypoglycemia ) 15 - 30 gm PO UD PRN PRN Reason: Hypoglycemia Protocol Stop: 04/07/24 18:33 Miscellaneous Information (Pharmacy Glycemic Mgmt Consult) 1 each N/A UD PRN PRN Reason: Consult Stop: 04/07/24 18:33 Polyethylene Glycol (Polyethylene (Miralax) 17 Gm Pack) 17 gm PO DAILY [facility] Stop: 04/08/24 08:59 Last Admin: 03/09/24 08:18 Dose: 17 gm
[2024-03-09] MEDS: CARBIDOPA/LEVODOPA 25/100MG TAB PO SCH (15:10)
[2024-03-09] MEDS: WARFARIN SOD 5 MG TAB PO SCH (15:11)
[2024-03-09] MEDS ORDERED: GABAPENTIN 300 MG CAP PO SCH (21:00)
[2024-03-09] MEDS ORDERED: MEGESTROL ACETATE 40 MG TAB PO SCH (21:00)
[2024-03-09] MEDS ORDERED: carvediloL 25 MG TAB PO SCH (21:00)
[2024-03-10] MEDS ORDERED: PANTOprazole 40 MG TAB PO SCH (06:30)
--- NOTE | 2024-03-10 08:51 | Discharge Summary ---
Date of Service March 10, 2024 Admission HPI Per Admitting Provider 79-year-old male with atrial fibrillation on Coumadin, diabetes type 2 with neuropathy, Parkinson's disease, and other problems noted below presenting with near syncopal episode this morning. Patient is a resident of [facility] and is currently in town visiting his son and family for [place]. He has been doing well until this morning. Patient checked his blood sugar before breakfast and it was 194, so he proceeded to administer his usual insulin Toujeo 50 units. 30 minutes later while having breakfast, patient's family noted that the patient was becoming weak, slumping forward, with his eyes almost closing and diaphoretic. Patient's family tried to wake up the patient, gave him some orange juice and a spoon of sugar. Patient then became more responsive and talking more. He denies having any palpitations, chest pain, shortness of breath or dizziness. When the EMS arrived, the patient's blood glucose was noted to be 304. At the ER, patient received with essentially normal vital signs. Lactic acid was elevated at 2.9, and 5.7 upon recheck. He was given 2 L of normal saline. CT abdomen pelvis showing possible acute versus chronic pyelonephritis. Patient was started with IV ceftriaxone. On exam, patient seen resting in bed, comfortable, awake and alert oriented x 3, conversant, answering all questions appropriately. He said he feels better since admission, denies active headache, dizziness, chest pain, shortness of breath, abdominal pain, problems with urination. Patient's son at the bedside also supplying further information. He states that his father has been staying in front of the fireplace for the past 2 days. Also constipated x 1 week but had 2 bowel movements at the ER. Admission Exam Per Admitting Provider Physical Exam: General- oriented x 3, not in distress, speaks in sentences with no effort or accessory muscle use Head- atraumatic Eyes- PERRL, EOMI, anicteric ENT- oropharynx clear Neck- supple, no JVD, no adenopathy, no thyromegaly; carotids +2/2, no bruits appreciated Lungs- clear to auscultation bilaterally, no rales/wheezes Heart- normal rate, Irregularly irregular rhythm; no murmur, no gallop, no rub appreciated Abdomen- normal bowel sounds, nondistended, soft, nontender, no masses or hepatosplenomegaly Extremities- no pretibial edema, no calf tenderness; peripheral pulses intact Neuro- alert, oriented x 3; CN 2-12 grossly intact; motor 5/5 bilaterally;sensation 100% on all extremities; no other gross focal neurologic deficits Skin- warm & dry Principal Diagnosis Syncope likely vasovagal, hyperglycemia with elevated hemoglobin A1c at 11.1, controlled A-fib, Parkinson's disease Discharge Exam Lying in bed without any acute distress Constitutional well developed, well nourished and + obese; not ill appearing Eyes PERRL, conjunctivae normal, anicteric sclerae ENMT external ear and nose normal, oropharynx normal Neck trachea midline, no thyromegaly Respiratory no respiratory distress Auscultation: lungs clear to auscultation bilaterally Cardiovascular Rate/Rhythm: regular rate and regular rhythm; not tachycardic Heart Sounds: normal S1 and normal S2; no murmur Extremities: no edema Gastrointestinal (Abdomen) Inspection/Auscultation: normal bowel sounds; abdomen not distended Percussion/Palpation: abdomen soft; abdomen nontender Musculoskeletal no cyanosis or clubbing, extremities motor strength 5/5 Neurologic normal touch/pain/proprioception and moves all extremities; no focal motor deficits Psychiatric A+Ox3, euthymic affect Lymphatic no cervical or axillary lymphadenopathy Discharge Data Allergies Allergy/AdvReac Type Severity Reaction Status Date / Time No Known Allergies Allergy Unverified 03/08/24 16:00 Consultations 03/08/24 15:44 ED Decision to Admit Stat Ordered Studies 03/08/24 13:43 CT head/brain wo con Stat 03/08/24 13:50 CT Abd and Pelvis [CT abd pelvis wo con] Stat 03/09/24 US carotid doppler BI Routine Hospital Course (1) Near syncope: (2) Elevated lactic acid level: (3) Pyelonephritis: 79-year-old male with atrial fibrillation on Coumadin, diabetes type 2 with neuropathy, Parkinson's disease, and other problems noted below presenting with near syncopal episode this morning. Near syncope in the setting of possible: Sepsis with elevated lactic acid- sepsis ruled out Acute versus chronic pyelonephritis Reports chills for the past 1 to 2 days but denies problems with urination, flank or back pain CT of the abdomen pelvis is suggestive of possible chronic pyelonephritis UA has been completely normal and the patient remains free from any symptoms and there is no other signs of infection Started with intravenous cefepime which will be discontinued Possible hypoglycemia episode? Patient's symptoms seems to improve after being given orange juice and a spoon of sugar Patient currently hyperglycemic Check A1c - very high at 11.1 Pharmacy glycemic management Rule out orthostatic hypotension Check orthostatic vital signs No orthostasis noted Rule out arrhythmia, history of A-fib Monitor telemetry noted Echocardiogram ordered Continue usual carvedilol and Coumadin INR daily - INR remains therapeutic and no arrhythmias and monitor Component of dehydration Acute kidney injury Patient's creatinine elevated 1.7 Give gentle IV NSS Constipation MiraLAX daily Other chronic medical problems: Parkinson's disease-continue carbidopa levodopa History of prostate cancer, status post radiation Abdominal hernia Abdominal aortic aneurysm Back surgery 2019 DVT prophylaxis Already on Coumadin CODE STATUS Full code as per patient Disposition Lives at home in [place], [place] area Currently visiting son Discussed with the son and other family members and he will be discharged home this afternoon Total Time Total Time Spent Total Time Spent (In Minutes): 40 minutes Discharge Plan Discharge Items Patient Disposition: Home - Self-Care Reason For Visit: SYNCOPE Discharge Diagnosis: Syncope likely vasovagal, hyperglycemia with elevated hemoglobin A1c at 11.1, controlled A-fib, Parkinson's disease Activity: Resume your previous activity Non-emergency contact: Primary Care Provider Call non-emergency contact if: you have any medication questions and your sym ptoms worsen Follow-up/Referrals: Atif De La Cruz DO [Primary Care Provider] - (Please make an appointment with your PCP within 7 days) Diet: Carb Consistent or DM2 Addtl Attending Provider Instructions: Please take precautions to avoid falls Try to drink more fluid Take your medications as advised and no change in your medications Your diabetes is out of control and talk to your PCP for any change in your insulin regimen to control it further Please keep appointments with the healthcare providers Pending Studies at Discharge: No Stand-Alone Forms: My [employer], Smoking Cessation Medications and DC Order Prescriptions: Continued carvedilol 25 mg tablet 25 mg PO BID pantoprazole 40 mg tablet,delayed release (DR/EC) 40 mg PO DAILYBB warfarin 5 mg tablet 5 mg PO DIRECTED Rx Instructions: SPOKE WITH PT HE IS TAKING 5MG ONCE DAILY EVERY DAY. HE GETS LEVELS CHECKED EVERY 10 DAYS. gabapentin 300 mg capsule 300 mg PO HS carbidopa-levodopa 25-100 mg tablet 2 tab PO TID Rx Instructions: TAKE 45 MIN PRIOR TO MEALS megestrol 20 mg tablet 20 mg PO BID rosuvastatin 20 mg tablet 20 mg PO DAILY insulin glargine U-300 conc [Toujeo SoloStar U-300 Insulin] 300 unit/mL (1.5 mL) insulin pen 50 unit subcut DAILY Discharge Orders: Discharge Order (Routine); Ordered 03/09/24 Ordered By: Elisa Duran Admission Data Admit Date/Time: 03/08/24 16:48 Attending Provider: Elisa Duran Admit Provider: Moustapha Yao Primary Care Provider: Atif De La Cruz Other Providers: Moustapha Yao Other Interventions: Discharge Summary Assessment (RN) Last Done: 03/09/24 17:47
[2024-03-10] MEDS ORDERED: ROSUVASTATIN CALCIUM 20 MG TAB PO SCH (09:00)
== END 2024-03-09 18:30 | disposition home or self-care (01) | DRG 638 ==
LOC: ED 11:55 → SUATTDRO 16:48 → 2S 16:48
DX: Z85.46 Personal history of malignant neoplasm of prostate; E11.40 Type 2 diabetes mellitus with diabetic neuropathy, unspecified; I48.91 Unspecified atrial fibrillation; E11.65 Type 2 diabetes mellitus with hyperglycemia; Z92.3 Personal history of irradiation; Z79.4 Long term (current) use of insulin; E78.5 Hyperlipidemia, unspecified; I95.1 Orthostatic hypotension; E11.649 Type 2 diabetes mellitus with hypoglycemia without coma; Z79.01 Long term (current) use of anticoagulants; G20.A1 Parkinson's disease without dyskinesia, without mention of fluctuations; K46.9 Unspecified abdominal hernia without obstruction or gangrene; I71.40 Abdominal aortic aneurysm, without rupture, unspecified; K59.00 Constipation, unspecified; E86.0 Dehydration; N17.9 Acute kidney failure, unspecified; N10 Acute pyelonephritis; N11.9 Chronic tubulo-interstitial nephritis, unspecified; I10 Essential (primary) hypertension